=== PATIENT | female | born 1990 | race Caucasian/White ===

== ENCOUNTER 2017-11-07 18:25 | Emergency (ER) | payer MEDICAID ==
[~2017-11-07] VITALS: Ht 157.5 cm; Wt 86.2 kg
[2017-11-07 19:10] VITALS: BP 128/81
--- NOTE | 2017-11-07 19:17 | NUR ---
RADHA SHEETS AT BEDSIDE FOR EVAL.
--- NOTE | 2017-11-07 19:17 | NUR ---
RECEIVED REPORT FROM LAMBERT MONTOYA FOR [facility]ERY
== END 2017-11-07 19:42 | disposition home or self-care (01) ==
LOC: ER 18:27
DX: J06.9 Acute upper respiratory infection, unspecified (principal)
CPT/HCPCS: A4606; Z7610